=== PATIENT | female | born 1995 | race American Indian/Alaskan Native ===

== ENCOUNTER 2016-09-27 17:22 | Emergency (ER) | payer MEDICAID ==
[2016-09-27] MEDS ORDERED: NACL 0.9% 1000 ML 1,000 ML IV ONE (17:58)
--- NOTE | 2016-09-27 17:58 | Emergency Department Report ---
Chief Complaint: Abdominal Pain Stated Complaint: BODY PAIN/CHROHN'S DISEASE Time Seen by Provider: 09/27/16 17:55 - HPI History of Present Illness: PT c/o Crohn's flare up that started today while at work. PT has had Crohn's for six years. PT was not given her last scheduled Remicade injection 3 weeks ago for a "spot" on her foot. PT went to doctor and was told that it is not infected. PT's family states that pt gets like this if she does not get her Remicade - ROS Review of Systems: + myalgia + abd pain + nausea - Exam Physical Exam: thin female, appears nauseated, otherwise, no acute distress gcs 15 MSE screening note: Focused history and physical exam performed. Due to findings the following was ordered: labs, fluids ED Disposition for MSE Condition: Stable
[2016-09-27 18:22] VITALS: BP 131/89
[2016-09-27 18:45] LABS: Basophils % (Auto) 0.5 % (0.0-1.8); Eosinophils % (Auto) 3.7 % (0.0-4.3); Hematocrit 37.6 % (30.3-42.9); Hemoglobin 12.4 gm/dl (10.1-14.3); Mean Corpuscular HGB Conc 33 % (30-34); Mean Corpuscular Hemoglobin 29 pg (28-32); Mean Corpuscular Volume 87 fl (79-97); Platelet Count 138 K/mm3 (140-440); Red Blood Count 4.31 M/mm3 (3.65-5.03); Red Cell Distribution Width 13.9 % (13.2-15.2); White Blood Count 8.4 K/mm3 (4.5-11.0)
[2016-09-27 18:48] LABS: Alanine Aminotransferase 18 units/L (7-56); Albumin 4.3 g/dL (3.9-5); Albumin/Globulin Ratio 1.3 %; Alkaline Phosphatase 71 units/L (35-129); Anion Gap 16 mmol/L; BUN/Creatinine Ratio 14.28; Bilirubin,Total < 0.2 mg/dL (0.1-1.2); Blood Urea Nitrogen 10 mg/dL (7-17); Calcium 9.1 mg/dL (8.4-10.2); Carbon Dioxide 24 mmol/L (22-30); Chloride 99.4 mmol/L (98-107); Glucose 106 mg/dL (65-100); Lipase 37 units/L (13-60); Potassium 3.7 mmol/L (3.6-5.0); Sodium 136 mmol/L (137-145); Total Protein 7.5 g/dL (6.3-8.2)
--- NOTE | 2016-09-28 17:45 | ED Elopement Review ---
ED Pt Elopement review - Results review Lab results: Laboratory Tests 09/27/16 09/27/16 18:08 18:08 WBC 8.4 RBC 4.31 Hgb 12.4 Hct 37.6 MCV 87 MCH 29 MCHC 33 RDW 13.9 Plt Count 138 L Lymph % (Auto) 16.2 [place] % (Auto) 11.6 H Eos % (Auto) 3.7 Baso % (Auto) 0.5 Lymph # 1.4 [place] # 1.0 H Eos # 0.3 Baso # 0.0 Seg Neutrophils % 68.0 Seg Neutrophils # 5.7 Sodium 136 L Potassium 3.7 Chloride 99.4 Carbon Dioxide 24 Anion Gap 16 BUN 10 Creatinine 0.7 Estimated GFR > 60 BUN/Creatinine Ratio 14.28 Glucose 106 H Calcium 9.1 Total Bilirubin < 0.2 AST 35 ALT 18 Alkaline Phosphatase 71 Total Protein 7.5 Albumin 4.3 Albumin/Globulin Ratio 1.3 Lipase 37 - Call Back decision Pt Call Back Decision: No action required
== END 2016-09-28 02:31 | disposition left against medical advice (07) ==
LOC: ED 17:22
DX: R10.9 Unspecified abdominal pain (principal); M79.1 Myalgia; R11.0 Nausea; Z53.21 Procedure and treatment not carried out due to patient leaving prior to being seen by health care provider
CPT/HCPCS: 36415; 80053; 83690; 85025